=== PATIENT | female | born 1950 | race Caucasian/White ===

== ENCOUNTER 2018-01-31 18:13 | Inpatient (IN) | payer MEDICARE, OTHER ==
[2018-01-31] VITALS (7 sets, daily range): BP systolic 126–165; BP diastolic 65–83
[~2018-01-31] VITALS: Ht 162.6 cm; Wt 68.4 kg
[~2018-01-31 18:13] MED LIST: heparin, porcine-25,000 units/250ml premix IV ONE
[2018-01-31] MEDS ORDERED: aspirin 81mg tab.chew PO ONE (18:35)
[2018-01-31] MEDS ORDERED: heparin 10,000 units/1 ML INJ IV ONE (18:40)
[2018-01-31] MEDS: nitroGLYCERIN 0.4mg SUBLingual tab SL PRN ×5 (18:42→22:03)
[2018-01-31 18:43] LABS: BASOPHILS # (AUTO) 0.1 X10'3 (0-0.2); BASOPHILS % (AUTO) 0.8 % (0-1); EOSINOPHILS # (AUTO) 0.1 X10'3 (0-0.9); EOSINOPHILS % (AUTO) 1.2 % (0-6); HEMATOCRIT 41.8 % (35.0-45.0); HEMOGLOBIN 14.1 g/dl (12.0-16.0); LYMPHOCYTES # (AUTO) 3.1 X10'3 (1.1-4.8); LYMPHOCYTES % (AUTO) 35.8 % (21-51); MEAN CORPUSCULAR HEMOGLOBIN 29.1 PG (27.0-31.0); MEAN CORPUSCULAR HGB CONC 33.7 % (33.0-36.5); MEAN CORPUSCULAR VOLUME 86.2 FL (78-98); MEAN PLATELET VOLUME 9.2 FL (7.4-10.4); MONOCYTES # (AUTO) 0.7 X10'3 (0-0.9); MONOCYTES % (AUTO) 8.3 % (2-12); NEUTROPHILS # (AUTO) 4.6 X10'3 (1.8-7.7); NEUTROPHILS % (AUTO) 53.9 % (42-75); PLATELET COUNT 281 X10'3 (140-440); RED BLOOD COUNT 4.85 X10'6 (4.20-5.60); RED CELL DISTRIBUTION WIDTH 13.3 % (11.5-14.5); WHITE BLOOD COUNT 8.6 X10'3 (4.5-11.0)
[2018-01-31 18:51] LABS: ALANINE AMINOTRANSFERASE 24 U/L (12-78); ALBUMIN 3.8 G/DL (3.4-5.0); ALBUMIN/GLOBULIN RATIO 1.1 (1.1-1.5); ALKALINE PHOSPHATASE 64 IU/L (46-116); ANION GAP 6 (8-16); ASPARTATE AMINO TRANSFERASE 16 U/L (10-37); BILIRUBIN,TOTAL 0.3 MG/DL (0.1-1.0); BLOOD UREA NITROGEN 20 MG/DL (7-18); BUN/CREATININE RATIO 21.5 (6.6-38.0); CALCIUM 10.4 MG/DL (8.5-10.1); CHLORIDE 104 MMOL/L (99-107); CREATININE 0.93 MG/DL (0.40-0.90); GLUCOSE 160 MG/DL (70-104); POTASSIUM 3.3 MMOL/L (3.5-5.1); SODIUM 141 MMOL/L (135-145); TOTAL CARBON DIOXIDE 31.5 MMOL/L (24-32); TOTAL PROTEIN 7.3 G/DL (6.4-8.2); eGFR 60 ML/MIN
[2018-01-31 18:54] LABS: PARTIAL THROMBOPLASTIN TIME 23 SECONDS (22-32); PROTHROMBIN TIME 10.1 SECONDS (9.0-12.0)
[2018-01-31] MEDS ORDERED: LOSA25TA96 PO (18:59)
[2018-01-31] MEDS ORDERED: nitroGLYCERIN-Tridil 50MG/D5W 250 ML IV ONE (19:15)
[2018-01-31] MEDS ORDERED: midazolam 2 mg/2 ml injection ONE (19:16)
[2018-01-31] MEDS ORDERED: iohexol 350 MG/ML 50ML vial IV ONE (19:16)
[2018-01-31] MEDS ORDERED: LIDOcaine 1% (10mg/ml)w/preservative injection 20ml MDV ONE (19:16)
[2018-01-31] MEDS ORDERED: heparin 1,000unit/ml 10ml vial 10 ML ONE (19:16)
[2018-01-31] MEDS ORDERED: fentaNYL/PF 50MCG/1 ML 2ML syringe ONE (19:16)
[2018-01-31] MEDS ORDERED: iohexol 350MG/ML 100ml bottle IV ONE (19:16)
[2018-01-31] MEDS ORDERED: normal saline 1000ml 1,000 ML IV ONE (21:10)
[2018-01-31] MEDS: HYDROcodone/acetaminophen 5mg/325mg tablet PO PRN (22:55)
[2018-02-01] VITALS (7 sets, daily range): BP systolic 129–144; BP diastolic 58–76
[2018-02-01] MEDS ORDERED: ondansetron/PF 4mg/2ml inj IV ONE
[2018-02-01] MEDS ORDERED: heparin 10,000 units/1 ML INJ IV ONE (00:25)
[2018-02-01] MEDS ORDERED: heparin 10,000 units/1 ML INJ IV PRN (00:25)
[2018-02-01] MEDS: morphine 2 MG/ML inj. syringe IV PRN (00:34)
[2018-02-01] MEDS: ondansetron/PF 4mg/2ml inj IV PRN ×4 (00:53→20:05)
[2018-02-01 01:10] LABS: PROTHROMBIN TIME 10.4 SECONDS (9.0-12.0)
[2018-02-01 01:18] LABS: BASOPHILS % (AUTO) 0.3 % (0-1); EOSINOPHILS % (AUTO) 0.1 % (0-6); HEMATOCRIT 39.1 % (35.0-45.0); HEMOGLOBIN 13.5 g/dl (12.0-16.0); LYMPHOCYTES # (AUTO) 0.8 X10'3 (1.1-4.8); LYMPHOCYTES % (AUTO) 9.6 % (21-51); MEAN CORPUSCULAR HEMOGLOBIN 29.7 PG (27.0-31.0); MEAN CORPUSCULAR HGB CONC 34.5 % (33.0-36.5); MEAN CORPUSCULAR VOLUME 86.2 FL (78-98); MEAN PLATELET VOLUME 9.7 FL (7.4-10.4); MONOCYTES # (AUTO) 0.1 X10'3 (0-0.9); MONOCYTES % (AUTO) 1.6 % (2-12); NEUTROPHILS # (AUTO) 7.4 X10'3 (1.8-7.7); NEUTROPHILS % (AUTO) 88.4 % (42-75); PLATELET COUNT 218 X10'3 (140-440); RED BLOOD COUNT 4.54 X10'6 (4.20-5.60); RED CELL DISTRIBUTION WIDTH 13.3 % (11.5-14.5); WHITE BLOOD COUNT 8.3 X10'3 (4.5-11.0)
[2018-02-01] MEDS: HYDROcodone/acetaminophen 10/325mg tab PO PRN ×2 (01:27→20:26)
[2018-02-01] MEDS: heparin 25,000 UNIT/250ml bag 250 ML IV SCH ×3 (01:32→22:21)
[2018-02-01 07:29] LABS: BASOPHILS % (AUTO) 0.4 % (0-1); EOSINOPHILS % (AUTO) 0.1 % (0-6); HEMOGLOBIN 13.3 g/dl (12.0-16.0); LYMPHOCYTES % (AUTO) 10.6 % (21-51); MEAN CORPUSCULAR HEMOGLOBIN 30.3 PG (27.0-31.0); MEAN CORPUSCULAR VOLUME 86.5 FL (78-98); MEAN PLATELET VOLUME 9.5 FL (7.4-10.4); MONOCYTES # (AUTO) 0.5 X10'3 (0-0.9); MONOCYTES % (AUTO) 5.2 % (2-12); NEUTROPHILS # (AUTO) 7.9 X10'3 (1.8-7.7); NEUTROPHILS % (AUTO) 83.7 % (42-75); PLATELET COUNT 233 X10'3 (140-440); RED CELL DISTRIBUTION WIDTH 13.1 % (11.5-14.5); WHITE BLOOD COUNT 9.4 X10'3 (4.5-11.0)
[2018-02-01] MEDS: carvedilol 6.25mg tablet PO SCH ×2 (07:40→20:00)
[2018-02-01] MEDS: aspirin 81mg tablet.DR PO SCH (07:40)
[2018-02-01 07:44] LABS: ALANINE AMINOTRANSFERASE 23 U/L (12-78); ALBUMIN 3.4 G/DL (3.4-5.0); ALBUMIN/GLOBULIN RATIO 1.1 (1.1-1.5); ALKALINE PHOSPHATASE 57 IU/L (46-116); ANION GAP 9 (8-16); ASPARTATE AMINO TRANSFERASE 67 U/L (10-37); BILIRUBIN,TOTAL 0.3 MG/DL (0.1-1.0); BLOOD UREA NITROGEN 18 MG/DL (7-18); BUN/CREATININE RATIO 19.8 (6.6-38.0); CALCIUM 9.4 MG/DL (8.5-10.1); CHLORIDE 106 MMOL/L (99-107); CHOL/HDL RATIO 2.4 (0.00-4.99); CHOLESTEROL 159 MG/DL (0-200); CREATININE 0.91 MG/DL (0.40-0.90); GLUCOSE 156 MG/DL (70-104); HDL CHOLESTEROL 65 MG/DL (35-60); LDL CHOLESTEROL 85 MG/DL (50-100); POTASSIUM 3.9 MMOL/L (3.5-5.1); SODIUM 140 MMOL/L (135-145); TOTAL CARBON DIOXIDE 25.5 MMOL/L (24-32); TOTAL PROTEIN 6.6 G/DL (6.4-8.2); TRIGLYCERIDES 54 MG/DL (20-135); eGFR 61 ML/MIN
[2018-02-01] MEDS ORDERED: lisinopril 5mg tablet PO SCH (08:00)
[2018-02-01] MEDS ORDERED: magnesium Cl slow-release 64mg tablet PO PRN (10:00)
[2018-02-01] MEDS ORDERED: potassium Cl 40MEQ/NS 500ml 500 ML IV PRN ×2 (10:00)
[2018-02-01] MEDS ORDERED: potassium Cl 20 mEq SR tablet PO PRN (10:00)
[2018-02-01] MEDS ORDERED: potassium Cl 20 mEq SR tablet PO STA (10:00)
[2018-02-01] MEDS ORDERED: magnesium 4gm in 100ml NS 100 ML IV PRN (10:00)
[2018-02-01] MEDS: magnesium 1gm/100ml D5W IVPB 100 ML IV SCH ×2 (10:39→13:32)
[2018-02-01 12:25] LABS: MAGNESIUM 2.1 MG/DL (1.5-2.4)
[2018-02-01] MEDS ORDERED: magnesium 1gm/100ml D5W IVPB 100 ML IV ONE (13:10)
[2018-02-01] MEDS: nitroGLYCERIN 0.4mg SUBLingual tab SL PRN (15:19)
[2018-02-01] MEDS ORDERED: magnesium hydroxide 30ml (MOM) UD suspension PO PRN (15:35)
[2018-02-01] MEDS ORDERED: ondansetron/PF 4mg/2ml inj IV PRN (15:35)
[2018-02-01] MEDS ORDERED: acetaminophen 325mg tablet PO PRN (15:35)
[2018-02-01] MEDS ORDERED: mag hydrox/Alum hydrox/simeth 30ml oral suspension PO PRN (15:35)
[2018-02-01] MEDS: HYDROcodone/acetaminophen 5mg/325mg tablet PO PRN (17:23)
[2018-02-01] MEDS: atorvastatin 10mg tablet PO SCH (20:25)
[2018-02-02 02:00] VITALS: BP 137/71
[2018-02-02] MEDS: HYDROcodone/acetaminophen 10/325mg tab PO PRN ×2 (03:18→23:25)
[2018-02-02 05:02] LABS: BASOPHILS % (AUTO) 0.4 % (0-1); EOSINOPHILS % (AUTO) 0.3 % (0-6); HEMATOCRIT 37.5 % (35.0-45.0); HEMOGLOBIN 12.4 g/dl (12.0-16.0); LYMPHOCYTES % (AUTO) 19.5 % (21-51); MEAN CORPUSCULAR HEMOGLOBIN 28.7 PG (27.0-31.0); MEAN CORPUSCULAR HGB CONC 33.1 % (33.0-36.5); MEAN CORPUSCULAR VOLUME 86.5 FL (78-98); MEAN PLATELET VOLUME 9.9 FL (7.4-10.4); MONOCYTES # (AUTO) 0.8 X10'3 (0-0.9); MONOCYTES % (AUTO) 8.3 % (2-12); NEUTROPHILS # (AUTO) 7.2 X10'3 (1.8-7.7); NEUTROPHILS % (AUTO) 71.5 % (42-75); PLATELET COUNT 203 X10'3 (140-440); RED BLOOD COUNT 4.34 X10'6 (4.20-5.60); RED CELL DISTRIBUTION WIDTH 14.3 % (11.5-14.5); WHITE BLOOD COUNT 10.1 X10'3 (4.5-11.0)
[2018-02-02 05:20] LABS: MAGNESIUM 1.9 MG/DL (1.5-2.4); POTASSIUM 3.6 MMOL/L (3.5-5.1)
[2018-02-02 05:26] LABS: TROPONIN I 17.33 NG/ML (0.0-0.05)
[2018-02-02 06:00] VITALS: BP 120/62
[2018-02-02] MEDS: carvedilol 6.25mg tablet PO SCH ×2 (07:32→20:38)
[2018-02-02] MEDS: aspirin 81mg tablet.DR PO SCH (07:32)
[2018-02-02] MEDS: potassium Cl 20 mEq SR tablet PO PRN ×3 (07:32→20:46)
[2018-02-02] MEDS: heparin 25,000 UNIT/250ml bag 250 ML IV SCH (07:51)
[2018-02-02] MEDS ORDERED: losartan 50mg tablet PO SCH (08:00)
[2018-02-02] MEDS ORDERED: pneumococcal 23-VAL P-sac vacc 25 mcg/0.5ml vial IMVAC ONE (10:00)
[2018-02-02 11:00] VITALS: BP 125/66
[2018-02-02] MEDS ORDERED: clopidogrel 300mg tablet PO ONE (11:40)
[2018-02-02 15:00] VITALS: BP 117/60
[2018-02-02] MEDS: morphine 2 MG/ML inj. syringe IV PRN (17:45)
[2018-02-02 19:00] VITALS: BP 128/73
[2018-02-02] MEDS: enoxaparin 30mg/0.3ml syringe SUBCUT SCH (20:38)
[2018-02-02] MEDS: atorvastatin 10mg tablet PO SCH (20:38)
[2018-02-02 23:00] VITALS: BP 102/48
[2018-02-03 03:00] VITALS: BP 99/52
[2018-02-03 04:31] VITALS: BP 99/52
[2018-02-03 05:16] LABS: BASOPHILS % (AUTO) 0.6 % (0-1); EOSINOPHILS # (AUTO) 0.1 X10'3 (0-0.9); EOSINOPHILS % (AUTO) 1.7 % (0-6); HEMATOCRIT 38.1 % (35.0-45.0); HEMOGLOBIN 12.5 g/dl (12.0-16.0); LYMPHOCYTES # (AUTO) 1.8 X10'3 (1.1-4.8); LYMPHOCYTES % (AUTO) 27.1 % (21-51); MEAN CORPUSCULAR HEMOGLOBIN 28.5 PG (27.0-31.0); MEAN CORPUSCULAR HGB CONC 32.8 % (33.0-36.5); MEAN CORPUSCULAR VOLUME 87.1 FL (78-98); MEAN PLATELET VOLUME 9.4 FL (7.4-10.4); MONOCYTES # (AUTO) 0.8 X10'3 (0-0.9); MONOCYTES % (AUTO) 11.9 % (2-12); NEUTROPHILS # (AUTO) 3.9 X10'3 (1.8-7.7); NEUTROPHILS % (AUTO) 58.7 % (42-75); PLATELET COUNT 201 X10'3 (140-440); RED BLOOD COUNT 4.37 X10'6 (4.20-5.60); RED CELL DISTRIBUTION WIDTH 14.2 % (11.5-14.5); WHITE BLOOD COUNT 6.7 X10'3 (4.5-11.0)
[2018-02-03 05:20] LABS: MAGNESIUM 2.2 MG/DL (1.5-2.4); POTASSIUM 4.9 MMOL/L (3.5-5.1)
[2018-02-03] MEDS ORDERED: CLOP75TA35 PO (06:59)
[2018-02-03] MEDS ORDERED: ATOR10TA PO (06:59)
[2018-02-03] MEDS ORDERED: ASPI-1071 PO (06:59)
[2018-02-03] MEDS ORDERED: NITR0.4T51 SL (06:59)
[2018-02-03] MEDS ORDERED: LOSA50TA21 PO (06:59)
[2018-02-03] MEDS ORDERED: CARV3.12 PO (06:59)
[2018-02-03 07:00] VITALS: BP 94/53
[2018-02-03] MEDS ORDERED: losartan 50mg tablet PO SCH (08:00)
[2018-02-03] MEDS ORDERED: clopidogrel 75mg tablet PO SCH (08:00)
[2018-02-03] MEDS ORDERED: carvedilol 6.25mg tablet PO SCH (08:00)
[2018-02-03] MEDS: aspirin 81mg tablet.DR PO SCH (08:39)
[2018-02-03] MEDS: enoxaparin 30mg/0.3ml syringe SUBCUT SCH (08:39)
== END 2018-02-03 11:20 | disposition home or self-care (01) | DRG 287 ==
LOC: ER 18:15 → PCU 3S 21:13
PROVIDERS: ADMIT Internal Medicine Cardiovascular Disease; ATTEND Internal Medicine Cardiovascular Disease
PROC: 4A023N7 Measurement of Cardiac Sampling and Pressure, Left Heart, Percutaneous Approach (ICD-10-PCS; principal; 2018-01-31)
PROC: B2111ZZ Fluoroscopy of Multiple Coronary Arteries using Low Osmolar Contrast (ICD-10-PCS; 2018-01-31)
PROC: B2151ZZ Fluoroscopy of Left Heart using Low Osmolar Contrast (ICD-10-PCS; 2018-01-31)
PROC: B3101ZZ Fluoroscopy of Thoracic Aorta using Low Osmolar Contrast (ICD-10-PCS; 2018-01-31)
PROC: 3E02340 Introduction of Influenza Vaccine into Muscle, Percutaneous Approach (ICD-10-PCS; 2018-02-03)
PROC: 3E0234Z Introduction of Serum, Toxoid and Vaccine into Muscle, Percutaneous Approach (ICD-10-PCS; 2018-02-03)
DX: I51.81 Takotsubo syndrome (principal); I25.10 Atherosclerotic heart disease of native coronary artery without angina pectoris; E78.5 Hyperlipidemia, unspecified; I10 Essential (primary) hypertension; G24.9 Dystonia, unspecified; Z79.82 Long term (current) use of aspirin; Z79.899 Other long term (current) drug therapy; Z88.0 Allergy status to penicillin; Z87.891 Personal history of nicotine dependence; Z23 Encounter for immunization
CPT/HCPCS: 36415; 71045; 80053; 80061; 83735; 84132; 84484; 85025; 85347; 85610; 85651; 85730; 87070; 93005; 93306; 93458; 93567; 96374; 96375; 97116; 97162; 99152; 99285; A4620; A6257; C1769; G0378; J1644; J1650; J2001; J2250; J2270; J2405; J3010; J3490; Q9967

== ENCOUNTER 2018-06-06 12:36 | Outpatient (CLI) | payer MEDICARE ==
[~2018-06-06 12:36] MED LIST changes: +ASPI-1071 PO; +ATOR10TA PO; +CARV3.12 PO; +CLOP75TA35 PO; +LOSA50TA64 PO; +NITR0.4T51 SL; -heparin, porcine-25,000 units/250ml premix IV ONE
== END 2018-06-06 23:59 | disposition home or self-care (01) ==
LOC: CARD DIAG 12:36
PROVIDERS: ATTEND Internal Medicine Cardiovascular Disease
DX: R06.02 Shortness of breath (principal); R06.00 Dyspnea, unspecified; I10 Essential (primary) hypertension; Z86.79 Personal history of other diseases of the circulatory system; Z79.82 Long term (current) use of aspirin; Z87.891 Personal history of nicotine dependence
CPT/HCPCS: 93306

== ENCOUNTER 2020-11-12 16:09 | Emergency (ER) | payer MEDICARE ==
[~2020-11-12] VITALS: Ht 162.6 cm; Wt 61.0 kg
[~2020-11-12 16:09] MED LIST changes: +CLOP75TA34 PO; -CLOP75TA35 PO
[2020-11-12 17:42] LABS: CLARITY,URINE CLEAR (Clear); COLOR,URINE YELLOW (Yellow); GLUCOSE, URINE NEGATIVE (Neg); KETONES,URINE NEGATIVE (Neg); LEUKOCYTE ESTERASE ,URINE MODERATE (Neg); NITRITES, URINE POSITIVE (Neg); OCCULT BLOOD,URINE NEGATIVE (Neg); PH,URINE 6.5 (4.8-8.0); PROTEIN,URINE NEGATIVE (Neg)
[2020-11-12 17:45] LABS: UA COLLECTION TYPE CLN CATCH MIDSTREAM
[2020-11-12 17:47] LABS: BACTERIA,URINE FEW /HPF (Neg); MUCUS STRANDS NONE SEEN /LPF (Neg); RBC,URINE NONE SEEN /HPF (0-2); SQUAMOUS EPITHELIAL CELL,UR FEW /LPF (FEW)
[2020-11-12] MEDS ORDERED: CEPH-585 PO ×2 (18:39→18:40)
[2020-11-12] MEDS ORDERED: cephalexin 250mg capsule PO ONE (18:50)
[2020-11-12 18:53] VITALS: BP 173/74
== END 2020-11-12 18:54 | disposition home or self-care (01) ==
LOC: ER 16:09
DX: N39.0 Urinary tract infection, site not specified (principal); I10 Essential (primary) hypertension; Z90.5 Acquired absence of kidney; Z87.440 Personal history of urinary (tract) infections; Z90.710 Acquired absence of both cervix and uterus; Z88.0 Allergy status to penicillin; Z79.82 Long term (current) use of aspirin; Z79.2 Long term (current) use of antibiotics; Z79.899 Other long term (current) drug therapy
CPT/HCPCS: 81001; 87077; 87088; 87186; 99283